=== PATIENT | female | born 1975 | race Caucasian/White ===

== ENCOUNTER 2019-01-31 05:33 | Inpatient (IN) | payer OTHER ==
[2019-01-31 06:33] LABS: ALANINE AMINOTRANSFERASE 17 IU/L (13-69); ALBUMIN 3.5 g/dl (3.3-4.9); ALBUMIN/GLOBULIN RATIO 1.29; ALKALINE PHOSPHATASE 102 IU/L (42-121); ANION GAP 8 (5-13); ASPARTATE AMINO TRANSFERASE 19 IU/L (15-46); BILIRUBIN,INDIRECT 0.8 mg/dl (0-1.1); BILIRUBIN,TOTAL 0.8 mg/dl (0.2-1.3); BLOOD UREA NITROGEN 12 mg/dl (7-20); CALCIUM 9.1 mg/dl (8.4-10.2); CARBON DIOXIDE 24 mmol/L (21-31); CHLORIDE 97 mmol/L (97-110); CREATININE 0.75 mg/dl (0.44-1.00); Estimated GFR > 60 mL/min (>60); GLUCOSE 121 mg/dl (70-220); POTASSIUM 4.1 mmol/L (3.5-5.1); SODIUM 129 mmol/L (135-144); TOTAL PROTEIN 6.2 g/dl (6.1-8.1)
[2019-01-31 06:56] LABS: ADD MAN DIFF? NO
[2019-01-31 06:58] LABS: WHITE BLOOD COUNT 6.1 10^3/ul (4.8-10.8)
[2019-01-31 06:58] LABS: BASOPHILS % 0.3 % (0.0-2.0); EOSINOPHILS % 0.3 % (0.0-7.0); HEMATOCRIT 28.8 % (37.0-47.0); HEMOGLOBIN 10.2 g/dl (12.0-16.0); LYMPHOCYTES # 1.1 10^3/ul (0.8-2.9); MEAN CORPUSCULAR HEMOGLOBIN 30.7 pg (29.0-33.0); MEAN CORPUSCULAR HGB CONC 35.4 g/dl (32.0-37.0); MEAN CORPUSCULAR VOLUME 86.7 fl (82.0-101.0); MONOCYTE # 0.5 10^3/ul (0.3-0.9); MONOCYTES % 8.1 % (0.0-11.0); NEUTROPHIL # 4.4 10^3/ul (1.6-7.5); PLATELET COUNT 282 10^3/UL (140-415); RED BLOOD COUNT 3.32 10^6/ul (4.20-5.40); RED CELL DISTRIBUTION WIDTH 12.5 % (11.5-14.5)
[2019-01-31] MEDS: SOD CHLORIDE 0.9% 1,000 ML IV ×3 (06:58→22:31)
[2019-01-31] MEDS: ACETAMINOPHEN 325 MG TAB PO ×2 (06:58→16:37)
[2019-01-31] MEDS ORDERED: NACL 0.9% 3 ML SYG IV (07:00)
[2019-01-31 07:24] LABS: URIC ACID 3.7 mg/dl (3.1-7.9)
[2019-01-31 07:24] LABS: MAGNESIUM 1.7 mg/dl (1.7-2.5)
[2019-01-31 09:41] LABS: OSMOLALITY 263 mOsm/kg (280-295)
[2019-01-31] MEDS: ASPIRIN 81 MG TAB PO (09:55)
[2019-01-31] MEDS: HEPARIN 5,000 UNIT/1 ML VIAL SC ×2 (09:55→21:10)
[2019-01-31] MEDS: metFORMIN 500 MG TAB PO ×2 (09:56→18:10)
[2019-01-31] MEDS ORDERED: DEXTROSE 50% 50 ML SYRINGE IV ×2 (10:00)
[2019-01-31] MEDS ORDERED: GLUCOSE GEL 15 GRAM TUBE BUCCAL (10:00)
[2019-01-31] MEDS ORDERED: GLUCAGON 1 MG INJ IM (10:00)
[2019-01-31] MEDS ORDERED: GLUCOSE GEL 15 GRAM TUBE PO ×2 (10:00)
[2019-01-31] MEDS: DOXYCYCLINE 100 MG TAB PO ×2 (14:47→21:01)
[2019-01-31] MEDS: BENAZEPRIL 20 MG TAB PO (14:53)
[2019-01-31 17:43] LABS: POTASSIUM,URINE RANDOM 22.1 mmol/L (25-125)
[2019-01-31 17:46] LABS: SODIUM,URINE RANDOM < 13 mmol/L (30-90)
[2019-01-31 18:06] LABS: OSMOLALITY,URINE 152 mOsm/kg (250-1200)
[2019-01-31] MEDS: INSULIN ASPART [NOVOLOG] 3 ML PEN SC ×2 (18:12→20:57)
[2019-01-31] MEDS: CLOZAPINE 100 MG TABLET PO (21:01)
[2019-01-31] MEDS: FAMOTIDINE 20 MG TAB PO (21:02)
[2019-02-01] MEDS: ACETAMINOPHEN 325 MG TAB PO ×3 (03:48→23:24)
[2019-02-01 05:04] LABS: ADD MAN DIFF? NO
[2019-02-01 05:12] LABS: BASOPHILS % 0.1 % (0.0-2.0); EOSINOPHILS % 0.6 % (0.0-7.0); HEMATOCRIT 28.5 % (37.0-47.0); HEMOGLOBIN 9.6 g/dl (12.0-16.0); LYMPHOCYTES # 1.7 10^3/ul (0.8-2.9); MEAN CORPUSCULAR HEMOGLOBIN 29.9 pg (29.0-33.0); MEAN CORPUSCULAR HGB CONC 33.7 g/dl (32.0-37.0); MEAN CORPUSCULAR VOLUME 88.8 fl (82.0-101.0); MONOCYTE # 0.7 10^3/ul (0.3-0.9); MONOCYTES % 10.5 % (0.0-11.0); NEUTROPHIL # 4.5 10^3/ul (1.6-7.5); NEUTROPHILS % 64.5 % (39.0-77.0); PLATELET COUNT 297 10^3/UL (140-415); RED BLOOD COUNT 3.21 10^6/ul (4.20-5.40); RED CELL DISTRIBUTION WIDTH 13.4 % (11.5-14.5)
[2019-02-01 05:48] LABS: ANION GAP 9 (5-13); BLOOD UREA NITROGEN 15 mg/dl (7-20); CALCIUM 8.9 mg/dl (8.4-10.2); CARBON DIOXIDE 22 mmol/L (21-31); CHLORIDE 104 mmol/L (97-110); CREATININE 0.88 mg/dl (0.44-1.00); Estimated GFR > 60 mL/min (>60); GLUCOSE 108 mg/dl (70-220); MAGNESIUM 1.8 mg/dl (1.7-2.5); PHOSPHORUS 4.3 mg/dl (2.5-4.9); POTASSIUM 4.4 mmol/L (3.5-5.1); SODIUM 135 mmol/L (135-144)
[2019-02-01] MEDS: INSULIN ASPART [NOVOLOG] 3 ML PEN SC ×4 (09:35→21:00)
[2019-02-01] MEDS: metFORMIN 500 MG TAB PO ×2 (09:36→17:53)
[2019-02-01] MEDS: DOXYCYCLINE 100 MG TAB PO ×2 (09:37→21:07)
[2019-02-01] MEDS: HEPARIN 5,000 UNIT/1 ML VIAL SC ×2 (09:38→21:08)
[2019-02-01] MEDS: ASPIRIN 81 MG TAB PO (09:38)
[2019-02-01] MEDS: BENAZEPRIL 20 MG TAB PO (09:39)
[2019-02-01] MEDS: BISACODYL (EC) 5 MG TAB PO (16:28)
[2019-02-01] MEDS: CLOZAPINE 100 MG TABLET PO (21:07)
[2019-02-01] MEDS: FAMOTIDINE 20 MG TAB PO (21:07)
[2019-02-02] MEDS: SOD CHLORIDE 0.9% 1,000 ML IV (04:31)
[2019-02-02 06:01] LABS: ANION GAP 8 (5-13); BLOOD UREA NITROGEN 17 mg/dl (7-20); CALCIUM 9.2 mg/dl (8.4-10.2); CARBON DIOXIDE 21 mmol/L (21-31); CHLORIDE 107 mmol/L (97-110); CREATININE 0.83 mg/dl (0.44-1.00); Estimated GFR > 60 mL/min (>60); GLUCOSE 98 mg/dl (70-220); SODIUM 136 mmol/L (135-144)
[2019-02-02] MEDS: ACETAMINOPHEN 325 MG TAB PO ×2 (06:02→12:05)
[2019-02-02] MEDS: INSULIN ASPART [NOVOLOG] 3 ML PEN SC ×2 (07:50→11:40)
[2019-02-02] MEDS: POLYETHYLENE GLYCOL 17 GM PACKET PO (08:47)
[2019-02-02] MEDS: metFORMIN 500 MG TAB PO (08:47)
[2019-02-02] MEDS: ASPIRIN 81 MG TAB PO (08:47)
[2019-02-02] MEDS: DOXYCYCLINE 100 MG TAB PO (08:47)
[2019-02-02] MEDS: BENAZEPRIL 20 MG TAB PO (08:48)
[2019-02-02] MEDS: HEPARIN 5,000 UNIT/1 ML VIAL SC (08:51)
== END 2019-02-02 16:50 | disposition home or self-care (01) | DRG 641 ==
LOC: E/R 05:33 → MS1 05:47
DX: E87.1 Hypo-osmolality and hyponatremia (principal); F20.9 Schizophrenia, unspecified; M25.552 Pain in left hip; E11.9 Type 2 diabetes mellitus without complications; I10 Essential (primary) hypertension; M51.17 Intervertebral disc disorders with radiculopathy, lumbosacral region; M71.38 Other bursal cyst, other site; N61.0 Mastitis without abscess; K59.00 Constipation, unspecified; H54.8 Legal blindness, as defined in USA; Z79.4 Long term (current) use of insulin; Z79.82 Long term (current) use of aspirin
CPT/HCPCS: 36415; 72158; 73510; 80048; 80053; 82436; 82962; 83735; 83930; 83935; 84100; 84133; 84300; 84560; 85025; 99285-25

== ENCOUNTER 2019-06-04 11:06 | Inpatient (IN) | payer OTHER ==
[2019-06-04] MEDS: LACTATED RINGER'S 1,000 ML IV (12:54)
[2019-06-04] MEDS ORDERED: CEFAZOLIN 1 GM INJ (16:22)
[2019-06-04] MEDS ORDERED: ROCURONIUM 50 MG INJ (16:22)
[2019-06-04] MEDS ORDERED: PROPOFOL 20 ML (16:22)
[2019-06-04] MEDS ORDERED: DESFLURANE 15 MIN (16:22)
[2019-06-04] MEDS ORDERED: MIDAZOLAM 1 MG/ML 2 ML INJ (16:23)
[2019-06-04] MEDS ORDERED: ONDANSETRON 4 MG INJ (16:23)
[2019-06-04] MEDS ORDERED: METOCLOPRAMIDE 10 MG INJ (16:23)
[2019-06-04] MEDS ORDERED: GELATIN SIZE 100 SPONGE (16:35)
[2019-06-04] MEDS: HEMOSTATIC MATRIX SYG ZFS (16:49)
[2019-06-04] MEDS: ROPIVACAINE 0.5 % 30 ML VIAL ×2 (16:50)
[2019-06-04] MEDS: THROMBIN 5000 UNIT (RECOTHROM) VIAL (16:51)
[2019-06-04] MEDS ORDERED: HYDROmorphONE 2 MG/ML SYG (17:09)
[2019-06-04] MEDS ORDERED: METOPROLOL 5 MG INJ (17:26)
[2019-06-04] MEDS ORDERED: DEXAMETHASONE 4 MG/ML 5 ML INJ (17:48)
[2019-06-04] MEDS: POLYMYXIN/BACITRACIN 1L IRRIG (18:30)
[2019-06-04] MEDS ORDERED: GLYCOPYRROLATE 0.4 MG INJ (18:38)
[2019-06-04] MEDS ORDERED: NEOSTIGMINE 3 MG/3 ML SYRINGE (18:38)
[2019-06-04] MEDS ORDERED: GLUCOSE GEL 15 GRAM TUBE BUCCAL (20:00)
[2019-06-04] MEDS ORDERED: niCARdipine 25 MG in SOD CHLORIDE 0.9% 240 ML IV (20:00)
[2019-06-04] MEDS ORDERED: DEXTROSE 50% 50 ML SYRINGE IV ×2 (20:00)
[2019-06-04] MEDS ORDERED: ACETAMINOPHEN 325 MG TAB PO (20:00)
[2019-06-04] MEDS ORDERED: GLUCOSE GEL 15 GRAM TUBE PO ×2 (20:00)
[2019-06-04] MEDS ORDERED: ACETAMINOPHEN 650 MG SUPP PR (20:00)
[2019-06-04] MEDS ORDERED: GLUCAGON 1 MG INJ IM (20:00)
[2019-06-04] MEDS: HYDROmorphONE 0.2 MG/ML PCA IV (20:36)
[2019-06-04] MEDS: INSULIN ASPART [NOVOLOG] 3 ML PEN SC (21:00)
[2019-06-04] MEDS: [UNRECOGNIZED DRUG - OTHER] IV (21:07)
[2019-06-04] MEDS: NS + KCL 20 MEQ 1,000 ML IV (21:39)
[2019-06-04] MEDS: CLOZAPINE 100 MG TABLET PO (22:41)
[2019-06-05] MEDS: [UNRECOGNIZED DRUG - OTHER] IV (01:31)
[2019-06-05] MEDS: ACCU-CHEK XX (02:00)
[2019-06-05] MEDS: HYDROmorphONE 0.2 MG/ML PCA IV ×3 (04:34→19:04)
[2019-06-05 05:49] LABS: ADD MAN DIFF? NO
[2019-06-05 05:58] LABS: WHITE BLOOD COUNT 10.9 10^3/ul (4.8-10.8)
[2019-06-05 05:58] LABS: ABNORMAL IP MESSAGE 1; BASOPHILS % 0.1 % (0.0-2.0); HEMATOCRIT 29.9 % (37.0-47.0); HEMOGLOBIN 10.2 g/dl (12.0-16.0); LYMPHOCYTES # 0.3 10^3/ul (0.8-2.9); LYMPHOCYTES % 2.8 % (15.0-51.0); MEAN CORPUSCULAR HEMOGLOBIN 30.9 pg (29.0-33.0); MEAN CORPUSCULAR HGB CONC 34.1 g/dl (32.0-37.0); MEAN CORPUSCULAR VOLUME 90.6 fl (82.0-101.0); MEAN PLATELET VOLUME 9.9 fl (7.4-10.4); MONOCYTE # 0.2 10^3/ul (0.3-0.9); MONOCYTES % 2.1 % (0.0-11.0); NEUTROPHIL # 10.3 10^3/ul (1.6-7.5); NEUTROPHILS % 94.6 % (39.0-77.0); PLATELET COUNT 302 10^3/UL (140-415); RED CELL DISTRIBUTION WIDTH 13.9 % (11.5-14.5)
[2019-06-05 06:06] LABS: POSITIVE DIFF @See below
[2019-06-05 06:21] LABS: ALANINE AMINOTRANSFERASE 22 IU/L (13-69); ALBUMIN 2.9 g/dl (3.3-4.9); ALKALINE PHOSPHATASE 87 IU/L (42-121); ANION GAP 8 (5-13); ASPARTATE AMINO TRANSFERASE 24 IU/L (15-46); BILIRUBIN,INDIRECT 0.6 mg/dl (0-1.1); BILIRUBIN,TOTAL 0.6 mg/dl (0.2-1.3); BLOOD UREA NITROGEN 9 mg/dl (7-20); CALCIUM 8.6 mg/dl (8.4-10.2); CARBON DIOXIDE 21 mmol/L (21-31); CHLORIDE 102 mmol/L (97-110); CREATININE 0.66 mg/dl (0.44-1.00); Estimated GFR > 60 mL/min (>60); GLUCOSE 241 mg/dl (70-220); POTASSIUM 4.4 mmol/L (3.5-5.1); SODIUM 131 mmol/L (135-144); TOTAL PROTEIN 5.8 g/dl (6.1-8.1)
[2019-06-05] MEDS: NS + KCL 20 MEQ 1,000 ML IV ×2 (06:22→16:47)
[2019-06-05] MEDS: INSULIN ASPART [NOVOLOG] 3 ML PEN SC ×3 (08:41→21:44)
[2019-06-05] MEDS: BENAZEPRIL 10 MG TAB PO (12:52)
[2019-06-05] MEDS: metFORMIN 500 MG TAB PO (17:38)
[2019-06-05] MEDS ORDERED: CLOZAPINE 25 MG TAB PO (21:00)
[2019-06-05] MEDS: CLOZAPINE 100 MG TABLET PO (22:28)
[2019-06-06] MEDS: ACCU-CHEK XX ×2 (02:00→21:58)
[2019-06-06] MEDS: NS + KCL 20 MEQ 1,000 ML IV (02:46)
[2019-06-06 05:17] LABS: ADD MAN DIFF? NO
[2019-06-06 05:20] LABS: BASOPHILS % 0.2 % (0.0-2.0); EOSINOPHILS % 0.2 % (0.0-7.0); HEMATOCRIT 27.7 % (37.0-47.0); HEMOGLOBIN 9.1 g/dl (12.0-16.0); LYMPHOCYTES # 1.7 10^3/ul (0.8-2.9); LYMPHOCYTES % 16.6 % (15.0-51.0); MEAN CORPUSCULAR HEMOGLOBIN 30.7 pg (29.0-33.0); MEAN CORPUSCULAR HGB CONC 32.9 g/dl (32.0-37.0); MEAN CORPUSCULAR VOLUME 93.6 fl (82.0-101.0); MEAN PLATELET VOLUME 9.8 fl (7.4-10.4); MONOCYTES % 9.8 % (0.0-11.0); NEUTROPHIL # 7.5 10^3/ul (1.6-7.5); NEUTROPHILS % 72.8 % (39.0-77.0); PLATELET COUNT 281 10^3/UL (140-415); RED BLOOD COUNT 2.96 10^6/ul (4.20-5.40); RED CELL DISTRIBUTION WIDTH 14.5 % (11.5-14.5)
[2019-06-06 05:20] LABS: WHITE BLOOD COUNT 10.2 10^3/ul (4.8-10.8)
[2019-06-06 05:50] LABS: ANION GAP 4 (5-13); BLOOD UREA NITROGEN 10 mg/dl (7-20); CALCIUM 8.7 mg/dl (8.4-10.2); CARBON DIOXIDE 25 mmol/L (21-31); CHLORIDE 104 mmol/L (97-110); CREATININE 0.77 mg/dl (0.44-1.00); Estimated GFR > 60 mL/min (>60); GLUCOSE 129 mg/dl (70-220); MAGNESIUM 1.5 mg/dl (1.7-2.5); POTASSIUM 4.5 mmol/L (3.5-5.1); SODIUM 133 mmol/L (135-144)
[2019-06-06] MEDS: HYDROmorphONE 0.2 MG/ML PCA IV ×3 (07:14→23:12)
[2019-06-06] MEDS: MAGNESIUM SULFATE 2 GM/50 ML 50 ML IVPB (09:04)
[2019-06-06] MEDS: BENAZEPRIL 10 MG TAB PO (09:05)
[2019-06-06] MEDS: FAMOTIDINE 20 MG TAB PO (09:05)
[2019-06-06] MEDS: INSULIN ASPART [NOVOLOG] 3 ML PEN SC ×4 (09:08→21:00)
[2019-06-06] MEDS: metFORMIN 500 MG TAB PO ×2 (09:09→17:51)
[2019-06-06] MEDS: BETHANECHOL 10 MG TAB PO ×2 (16:56→21:00)
[2019-06-06] MEDS: CLOZAPINE 100 MG TABLET PO (21:52)
[2019-06-07 05:14] LABS: ADD MAN DIFF? NO
[2019-06-07 05:25] LABS: WHITE BLOOD COUNT 11.4 10^3/ul (4.8-10.8)
[2019-06-07 05:25] LABS: BASOPHILS % 0.2 % (0.0-2.0); EOSINOPHILS % 0.2 % (0.0-7.0); HEMATOCRIT 30.1 % (37.0-47.0); HEMOGLOBIN 9.8 g/dl (12.0-16.0); LYMPHOCYTES # 1.1 10^3/ul (0.8-2.9); LYMPHOCYTES % 9.4 % (15.0-51.0); MEAN CORPUSCULAR HEMOGLOBIN 30.2 pg (29.0-33.0); MEAN CORPUSCULAR HGB CONC 32.6 g/dl (32.0-37.0); MEAN CORPUSCULAR VOLUME 92.6 fl (82.0-101.0); MEAN PLATELET VOLUME 9.9 fl (7.4-10.4); NEUTROPHIL # 9.2 10^3/ul (1.6-7.5); NEUTROPHILS % 80.8 % (39.0-77.0); PLATELET COUNT 278 10^3/UL (140-415); RED BLOOD COUNT 3.25 10^6/ul (4.20-5.40); RED CELL DISTRIBUTION WIDTH 14.2 % (11.5-14.5)
[2019-06-07 05:50] LABS: ANION GAP 6 (5-13); BLOOD UREA NITROGEN 12 mg/dl (7-20); CALCIUM 8.7 mg/dl (8.4-10.2); CARBON DIOXIDE 25 mmol/L (21-31); CHLORIDE 102 mmol/L (97-110); CREATININE 0.84 mg/dl (0.44-1.00); Estimated GFR > 60 mL/min (>60); GLUCOSE 171 mg/dl (70-220); POTASSIUM 4.3 mmol/L (3.5-5.1); SODIUM 133 mmol/L (135-144)
[2019-06-07] MEDS: metFORMIN 500 MG TAB PO ×2 (08:19→17:26)
[2019-06-07] MEDS: BENAZEPRIL 10 MG TAB PO (08:20)
[2019-06-07] MEDS: FAMOTIDINE 20 MG TAB PO (08:20)
[2019-06-07] MEDS: BETHANECHOL 10 MG TAB PO ×3 (08:20→21:00)
[2019-06-07] MEDS: INSULIN ASPART [NOVOLOG] 3 ML PEN SC ×4 (08:22→21:15)
[2019-06-07] MEDS: HYDROCODONE/APAP (5/325) TAB PO ×3 (12:50→19:34)
[2019-06-07] MEDS: ONDANSETRON 4 MG INJ IV (17:27)
[2019-06-07] MEDS: CLOZAPINE 100 MG TABLET PO (20:55)
[2019-06-08] MEDS: HYDROCODONE/APAP (5/325) TAB PO ×5 (00:11→20:33)
[2019-06-08] MEDS: ACCU-CHEK XX (02:00)
[2019-06-08 05:07] LABS: ADD MAN DIFF? NO
[2019-06-08 05:12] LABS: ABNORMAL IP MESSAGE 1; BASOPHILS % 0.2 % (0.0-2.0); EOSINOPHILS # 0.1 10^3/ul (0.0-0.5); EOSINOPHILS % 0.9 % (0.0-7.0); HEMATOCRIT 27.6 % (37.0-47.0); HEMOGLOBIN 9.4 g/dl (12.0-16.0); LYMPHOCYTES # 0.6 10^3/ul (0.8-2.9); LYMPHOCYTES % 5.5 % (15.0-51.0); MEAN CORPUSCULAR HEMOGLOBIN 31.3 pg (29.0-33.0); MEAN CORPUSCULAR HGB CONC 34.1 g/dl (32.0-37.0); MEAN PLATELET VOLUME 10.1 fl (7.4-10.4); MONOCYTES % 10.1 % (0.0-11.0); NEUTROPHIL # 8.3 10^3/ul (1.6-7.5); PLATELET COUNT 252 10^3/UL (140-415); RED CELL DISTRIBUTION WIDTH 13.7 % (11.5-14.5)
[2019-06-08 05:12] LABS: WHITE BLOOD COUNT 10.1 10^3/ul (4.8-10.8)
[2019-06-08 05:34] LABS: POSITIVE DIFF @See below
[2019-06-08 05:46] LABS: ANION GAP 6 (5-13); BLOOD UREA NITROGEN 16 mg/dl (7-20); CALCIUM 8.4 mg/dl (8.4-10.2); CARBON DIOXIDE 24 mmol/L (21-31); CHLORIDE 99 mmol/L (97-110); CREATININE 0.84 mg/dl (0.44-1.00); Estimated GFR > 60 mL/min (>60); GLUCOSE 175 mg/dl (70-220); POTASSIUM 4.3 mmol/L (3.5-5.1); SODIUM 129 mmol/L (135-144)
[2019-06-08 06:30] LABS: MAGNESIUM 1.4 mg/dl (1.7-2.5)
[2019-06-08] MEDS: FAMOTIDINE 20 MG TAB PO (08:38)
[2019-06-08] MEDS: metFORMIN 500 MG TAB PO ×2 (08:45→18:22)
[2019-06-08] MEDS: BENAZEPRIL 10 MG TAB PO (08:45)
[2019-06-08] MEDS: INSULIN ASPART [NOVOLOG] 3 ML PEN SC ×4 (08:48→20:41)
[2019-06-08] MEDS: BETHANECHOL 10 MG TAB PO ×3 (08:50→21:00)
[2019-06-08] MEDS: MAGNESIUM SULFATE 1 GM/D5W 100 ML IVPB (12:33)
[2019-06-08] MEDS: CLOZAPINE 100 MG TABLET PO (20:33)
[2019-06-08] MEDS: SENNA TAB PO (23:08)
[2019-06-09] MEDS ORDERED: DIPHENHYDRAMINE 50 MG CAP PO
[2019-06-09] MEDS: ACCU-CHEK XX (02:00)
[2019-06-09] MEDS: HYDROCODONE/APAP (5/325) TAB PO ×4 (02:51→21:08)
[2019-06-09 05:22] LABS: ADD MAN DIFF? NO
[2019-06-09 05:24] LABS: WHITE BLOOD COUNT 8.2 10^3/ul (4.8-10.8)
[2019-06-09 05:25] LABS: BASOPHILS % 0.1 % (0.0-2.0); EOSINOPHILS # 0.2 10^3/ul (0.0-0.5); EOSINOPHILS % 1.8 % (0.0-7.0); HEMATOCRIT 25.6 % (37.0-47.0); HEMOGLOBIN 8.5 g/dl (12.0-16.0); LYMPHOCYTES # 0.9 10^3/ul (0.8-2.9); MEAN CORPUSCULAR HEMOGLOBIN 30.1 pg (29.0-33.0); MEAN CORPUSCULAR HGB CONC 33.2 g/dl (32.0-37.0); MEAN CORPUSCULAR VOLUME 90.8 fl (82.0-101.0); MONOCYTE # 0.7 10^3/ul (0.3-0.9); MONOCYTES % 8.9 % (0.0-11.0); NEUTROPHIL # 6.4 10^3/ul (1.6-7.5); NEUTROPHILS % 77.7 % (39.0-77.0); PLATELET COUNT 267 10^3/UL (140-415); RED BLOOD COUNT 2.82 10^6/ul (4.20-5.40); RED CELL DISTRIBUTION WIDTH 13.9 % (11.5-14.5)
[2019-06-09 05:53] LABS: ANION GAP 6 (5-13); BLOOD UREA NITROGEN 15 mg/dl (7-20); CALCIUM 8.6 mg/dl (8.4-10.2); CARBON DIOXIDE 25 mmol/L (21-31); CHLORIDE 101 mmol/L (97-110); CREATININE 0.89 mg/dl (0.44-1.00); Estimated GFR > 60 mL/min (>60); GLUCOSE 138 mg/dl (70-220); MAGNESIUM 1.9 mg/dl (1.7-2.5); POTASSIUM 4.4 mmol/L (3.5-5.1); SODIUM 132 mmol/L (135-144)
[2019-06-09] MEDS: INSULIN ASPART [NOVOLOG] 3 ML PEN SC ×4 (08:46→21:00)
[2019-06-09] MEDS: metFORMIN 500 MG TAB PO ×2 (08:47→17:45)
[2019-06-09] MEDS: BETHANECHOL 10 MG TAB PO ×4 (08:47→21:00)
[2019-06-09] MEDS: FAMOTIDINE 20 MG TAB PO (08:48)
[2019-06-09] MEDS: SENNA TAB PO ×2 (08:48→21:08)
[2019-06-09] MEDS: BENAZEPRIL 10 MG TAB PO (08:49)
[2019-06-09] MEDS: CLOZAPINE 100 MG TABLET PO (22:01)
[2019-06-10] MEDS: ACCU-CHEK XX (02:00)
[2019-06-10] MEDS: HYDROCODONE/APAP (5/325) TAB PO ×3 (08:02→20:02)
[2019-06-10] MEDS: BETHANECHOL 10 MG TAB PO ×3 (09:00→21:00)
[2019-06-10] MEDS: metFORMIN 500 MG TAB PO ×2 (09:21→18:23)
[2019-06-10] MEDS: BENAZEPRIL 10 MG TAB PO (09:22)
[2019-06-10] MEDS: SENNA TAB PO ×2 (09:22→20:02)
[2019-06-10] MEDS: FAMOTIDINE 20 MG TAB PO (09:22)
[2019-06-10] MEDS: INSULIN ASPART [NOVOLOG] 3 ML PEN SC ×4 (09:25→21:00)
[2019-06-10] MEDS: CLOZAPINE 100 MG TABLET PO (21:25)
[2019-06-11] MEDS: ACCU-CHEK XX (02:00)
[2019-06-11] MEDS: BETHANECHOL 10 MG TAB PO ×2 (07:53→13:00)
[2019-06-11] MEDS: SENNA TAB PO (08:48)
[2019-06-11] MEDS: metFORMIN 500 MG TAB PO (08:48)
[2019-06-11] MEDS: FAMOTIDINE 20 MG TAB PO (08:49)
[2019-06-11] MEDS: BENAZEPRIL 10 MG TAB PO (08:49)
[2019-06-11] MEDS: HYDROCODONE/APAP (5/325) TAB PO ×2 (08:50→13:24)
[2019-06-11] MEDS: INSULIN ASPART [NOVOLOG] 3 ML PEN SC ×2 (08:52→11:40)
== END 2019-06-11 13:47 | disposition home or self-care (01) | DRG 460 ==
LOC: MS1 06-06 06:37 → REC 11:06 → ICU 18:59
PROVIDERS: Neurological Surgery
PROC: 0SG10K1 Fusion of 2 or more Lumbar Vertebral Joints with Nonautologous Tissue Substitute, Posterior Approach, Posterior Column, Open Approach (ICD-10-PCS; principal; 2019-06-04 13:00)
PROC: 0SG30K1 Fusion of Lumbosacral Joint with Nonautologous Tissue Substitute, Posterior Approach, Posterior Column, Open Approach (ICD-10-PCS; 2019-06-04 13:00)
PROC: 01NB0ZZ Release Lumbar Nerve, Open Approach (ICD-10-PCS; 2019-06-04 13:00)
DX: M47.26 Other spondylosis with radiculopathy, lumbar region (principal); M48.061 Spinal stenosis, lumbar region without neurogenic claudication; M71.38 Other bursal cyst, other site; E88.2 Lipomatosis, not elsewhere classified; E11.9 Type 2 diabetes mellitus without complications; F20.9 Schizophrenia, unspecified; H54.62 Unqualified visual loss, left eye, normal vision right eye; I10 Essential (primary) hypertension; Z79.84 Long term (current) use of oral hypoglycemic drugs
CPT/HCPCS: 72100; 72131; 80048; 80053; 82962; 83735; 84703; 85025; 86850; 86900; 86901; 87081; 88304; 97116; 97161; 97530